=== PATIENT | female | born 1990 | race African-American/Black ===

== ENCOUNTER 2017-03-12 17:11 | Emergency (ER) | payer OTHER ==
[2017-03-12 17:16] VITALS: BP 139/80; PULSE 85; TEMP 98.7; BMI 24.0
[2017-03-12 17:24] LABS: URINE APPEARANCE Clear; URINE BILIRUBIN Negative (NEGATIVE); URINE GLUCOSE (UA) Negative (NEGATIVE); URINE KETONE Negative (NEGATIVE); URINE LEUK ESTERASE Negative (NEGATIVE); URINE NITRITE Negative (NEGATIVE); URINE PROTEIN Negative (NEGATIVE); URINE UROBILINOGEN 0.2 E.U/dl (0.2-1.0)
[2017-03-12] MEDS ORDERED: ONDANSETRON 4 MG/2 ML VIAL IVPB ONE (17:34)
[2017-03-12 17:39] LABS: URINE BLOOD 2+ (NEGATIVE); URINE COLOR YELLOW
[2017-03-12] MEDS ORDERED: SODIUM CHLORIDE 1,000 ML IV ONE (17:42)
[2017-03-12] MEDS ORDERED: ONDANSETRON 4 MG/2 ML VIAL ONE (17:42)
--- NOTE | 2017-03-12 17:47 | PDOC ---
History of Present Illness <Edmond Kaufman - Last Filed: 03/12/17 19:10> - History of Present Illness Initial Comments: 03/12/17 18:11 The patient is a 26 year old female, , with no significant past medical history of kidney stones and anxiety (20mg Celexa), who presents to the emergency department with intermittent left-sided pelvic pain, nausea and vomiting for 2 days, and possible borderline positive at-home test just prior to her ED arrival today. She reports her pain is focal to the anterior left pelvic region, intermittent, and sharp. The patient reports a couple of episodes of vomiting yesterday and one episode this morning, nonbilious nonbloody. She states she feels nauseous at this time. The patient states she has an IUD in place and reports her menstrual cycle was irregular prior to IUD placement. She reports minimal, intermittent vaginal bleeding, which the patient describes as spotting. She reports her last intercourse was 2 weeks ago.The patient states she is in a monogomous relationship. She denies taking pain medication today. She states her pain experiences with kidney stones was more severe than her pain today and reports needing a procedure at the time. She denies chest pain, shortness of breath, headache and dizziness. She denies fever, chills, diarrhea and constipation. She denies dysuria, frequency, vaginal discharge, urgency and hematuria. Allergies: NKDA Surgical; Hx: D&C Social history: Occasional alcohol consumption. Denies use of tobacco or illicit drugs. PCP - Dr. Braga ([facility]) <Magui Singh - Last Filed: 03/12/17 21:48> <Ivan Dougherty - Last Filed: 03/13/17 04:24> - General Chief Complaint: Pain, Acute Stated Complaint: left pelvic pain Time Seen by Provider: 03/12/17 17:12 Past History - Past Medical History Hypercholesterolemia: Yes Kidney Stones: Yes - Reproductive History Is Patient Now?: (possible) Therapeutic (s) & number: Yes (1) - Immunization History Immunization Up to Date: Yes - Psycho/Social/Smoking Cessation Hx Anxiety: No Suicidal Ideation: No Smoking History: Never smoked Have you smoked in the past 12 months: No Hx Alcohol Use: Yes Drug/Substance Use Hx: No Substance Use Type: Alcohol <Edmond Kaufman - Last Filed: 03/12/17 19:10> <Magui Singh - Last Filed: 03/12/17 21:48> <vIan Dougherty - Last Filed: 03/13/17 04:24> - Past Medical History Allergies/Adverse Reactions: Allergies Allergy/AdvReac Type Severity Reaction Status Date / Time No Known Allergies Allergy Verified 03/12/17 17:12 Home Medications: Ambulatory Orders Citalopram Hydrobromide [Celexa -] 20 mg PO DAILY 03/12/17 Review of Systems - Review of Systems Able to Perform ROS?: Yes Comments:: 03/12/17 18:11 CONSTITUTIONAL: No reported: Fever, Chills, Diaphoresis, Generalized Weakness, Malaise, Loss of Appetite HEENT: No reported: Rhinorrhea, Nasal Congestion, Throat Pain, Throat Swelling, Difficulty Swallowing, Mouth Swelling, Ear Pain, Eye Pain, Visual Changes CARDIOVASCULAR: No reported: Chest Pain, Syncope, Palpitations, Irregular Heart Rate, Lightheadedness, Peripheral Edema RESPIRATORY: No reported: Cough, Shortness of Breath, SOB with Exertion, Orthopnea, Wheezing , Stridor, Hemoptysis GASTROINTESTINAL: (+) Nausea, Vomiting, No reported: Abdominal pain, Abdominal Distension, Diarrhea, Constipation, Melena, Hematochezia GENITOURINARY: (+) Left pelvic pain. No reported: Dysuria, Frequency, Urgency, Hesitancy, Flank Pain, Genital Pain MUSCULOSKELETAL: No reported: Myalgia, Arthralgia, Joint Swelling, Back pain, Neck Pain SKIN: No reported: Rash, Itching, Pallor HEMEATOLOGIC/IMMUNOLOGIC: No reported: Easy Bleeding, Easy Bruising, Lymphadenopathy, Frequent infections ENDOCRINE: No reported: Unexplained Weight Gain, Unexplained Weight Loss, Heat Intolerance , Cold Intolerance NEUROLOGIC: No reported: Headache, Focal Weakness, Paresthesias, Vertigo, Lightheadedness, Unsteady Gait, Seizure, Mental Status Changes, Incontinence PSYCHIATRIC: No reported: Anxiety, Depression <Magui Singh - Last Filed: 03/12/17 21:48> *Physical Exam - Vital Signs Last Vital Signs Temp Pulse Resp BP Pulse Ox 98.7 F 85 16 139/80 100 03/12/17 17:12 03/12/17 17:12 03/12/17 17:12 03/12/17 17:12 03/12/17 17:12 <Edmond Kaufman - Last Filed: 03/12/17 19:10> - Vital Signs Last Vital Signs Temp Pulse Resp BP Pulse Ox 98.7 F 85 16 139/80 100 03/12/17 17:12 03/12/17 17:12 03/12/17 17:12 03/12/17 17:50 03/12/17 17:12 - Physical Exam Comments: 03/12/17 18:12 GENERAL: The patient is awake, alert, and fully oriented, Nontoxic - in no acute distress. HEAD: Normocephalic, atraumatic. EYES: extraocular movements intact, sclera anicteric, conjunctiva clear. ENT: Normal voice, Moist mucous membranes. NECK: Normal range of motion, supple LUNGS: Breath sounds equal, clear to auscultation bilaterally. No wheezes, no rhonchi, no rales. HEART: Regular rate and rhythm, without murmur, rub or gallop. ABDOMEN: Soft, mild suprapubic and l adnexal tenderness, normoactive bowel sounds. No guarding, no rebound. No CVA tenderness EXTREMITIES: Normal range of motion, no edema. No clubbing or cyanosis. No cords, erythema, or tenderness. NEUROLOGICAL: No facial assymetry, Normal speech, PSYCH: Normal mood, normal affect. SKIN: Warm, Dry, normal turgor Pelvic Exam was performed in the presence of a female M.A. There is +mild left adnexal tenderness.The IUD string is present. No rashes. No CMT. no active bleeding <Magui Singh - Last Filed: 03/12/17 21:48> - Vital Signs Last Vital Signs Temp Pulse Resp BP Pulse Ox 98.7 F 85 16 139/80 100 03/12/17 17:12 03/12/17 17:12 03/12/17 17:12 03/12/17 17:50 03/12/17 17:12 <Ivan Dougherty - Last Filed: 03/13/17 04:24> ED Treatment Course - LABORATORY CBC & Chemistry Diagram: 03/12/17 17:50 03/12/17 17:50 - ADDITIONAL ORDERS Additional order review: Laboratory Results 03/12/17 17:18 Urine Color Yellow Urine Appearance Clear Urine pH 6.0 Ur Specific [place] 1.025 Urine Protein Negative Urine Glucose (UA) Negative Urine Ketones Negative Urine Blood 2+ H Urine Nitrite Negative Urine Bilirubin Negative Urine Urobilinogen 0.2 e.u/dl Ur Leukocyte Esterase Negative Urine HCG, Qual Negative <Shae,Edmond - Last Filed: 03/12/17 19:10> - LABORATORY CBC & Chemistry Diagram: 03/12/17 17:50 03/12/17 17:50 - ADDITIONAL ORDERS Additional order review: Laboratory Results 03/12/17 17:18 Urine Color Yellow Urine Appearance Clear Urine pH 6.0 Ur Specific [place] 1.025 Urine Protein Negative Urine Glucose (UA) Negative Urine Ketones Negative Urine Blood 2+ H Urine Nitrite Negative Urine Bilirubin Negative Urine Urobilinogen 0.2 e.u/dl Ur Leukocyte Esterase Negative Urine RBC 5-10 Urine WBC 3-5 Ur Epithelial Cells 1+ Urine Bacteria 1+ Urine HCG, Qual Negative - RADIOLOGY Radiograph Interpretation: 03/12/17 21:02 EXAM: Renal ultrasound was read by Obed Nieto MD at 20:59 EST REASON FOR EXAM: Left-sided pain FINDINGS: Renal dimensions are 9.9 x 3.8 x 4.6 cm for the right kidney and 10.7 x 5.0 x 4.0 cm for the left kidney. There is no hydronephrosis. There are no sonographically apparent renal masses or calculi. 03/12/17 21:48 EXAM: Transvaginal pelvic ultrasound and ovarian duplex was read by Obed Nieto MD at 21:43 EST REASON FOR EXAM: Left side pain, status post IUD insertion FINDINGS: Uterine dimensions are 7.5 x 4.0 x 4.2 cm. Endometrial stripe normal in thickness measuring 0.5cm. There is an IUD in place. There are subcentimeter ovarian follicles. Ovarian dimensions are 3.4 x 1.5 x 2.2 cm for the right ovary and 3.9 x 1.9 x 3.7 cm for the left ovary. There is intact blood flow demonstrated to the ovaries. Arterial and venous spectral waveforms demonstrated. There is no evidence of torsion. There is a 2.3 cm septated left ovarian cyst. There is mild free fluid. - Medications Given in the ED: ED Medications Discontinued Medications Generic Name Dose Route Start Last Admin Trade Name Freq PRN Reason Stop Dose Admin Ondansetron HCl 4 mg 03/12/17 17:34 03/12/17 17:50 Zofran Injection IVPB 03/12/17 17:35 4 mg ONCE ONE Administration <Magui Singh - Last Filed: 03/12/17 21:48> - LABORATORY CBC & Chemistry Diagram: 03/12/17 17:50 03/12/17 17:50 - ADDITIONAL ORDERS Additional order review: Laboratory Results 03/12/17 03/12/17 17:50 17:18 Sodium 136 Potassium 4.0 Chloride 104 Carbon Dioxide 24 Anion Gap 8 BUN 13 Creatinine 0.9 Creat Clearance w eGFR > 60 Random Glucose 93 Calcium 9.6 Total Bilirubin 0.5 AST 18 D ALT 14 Alkaline Phosphatase 66 Total Protein 7.6 Albumin 4.4 Beta HCG, Quant < 1.0 Urine Color Yellow Urine Appearance Clear Urine pH 6.0 Ur Specific [place] 1.025 Urine Protein Negative Urine Glucose (UA) Negative Urine Ketones Negative Urine Blood 2+ H Urine Nitrite Negative Urine Bilirubin Negative Urine Urobilinogen 0.2 e.u/dl Ur Leukocyte Esterase Negative Urine RBC 5-10 Urine WBC 3-5 Ur Epithelial Cells 1+ Urine Bacteria 1+ Urine HCG, Qual Negative 03/12/17 17:50 RBC 4.50 MCV 86.4 MCHC 34.1 RDW 13.5 MPV 9.8 Neutrophils % 47.4 Lymphocytes % 40.0 Monocytes % 8.4 Eosinophils % 1.3 Basophils % 2.9 H - Medications Given in the ED: ED Medications Discontinued Medications Generic Name Dose Route Start Last Admin Trade Name Freq PRN Reason Stop Dose Admin Sodium Chloride 1,000 mls @ 1,000 mls/hr 03/12/17 17:42 03/12/17 17:50 Normal Saline - IV 03/12/17 18:41 1,000 mls/hr .Q1H ONE Administration Ondansetron HCl 4 mg 03/12/17 17:34 03/12/17 17:50 Zofran Injection IVPB 03/12/17 17:35 4 mg ONCE ONE Administration <Ivan Dougherty - Last Filed: 03/13/17 04:24> Medical Decision Making - Medical Decision Making 03/12/17 17:44 26y F hx of kidney stones presenting with intermittent LLQ pain associated witn nausea. Pt about 2 months s/p IUD placement, and has been having sexual intercourse. Pt endorses having some vaginal spotting for the past few days, als notes she has irregular periods even prior to IUD. No fever/chills, diarrhea , dysuria, vag discharge. on exam pt has mild llq and suprapubic tenderness differential includes , ectopic , kidney stones, ovarian cysts , uti UA is neg for hcg will ck labs, beta hcg will give zofran and fluids pt declined pain medication possible US vs CT A portion of this note was documented by scribe services under my direction. I have reviewed the details of the note, within reason, and agree with the documentation with the following case summary and management plan written by me 03/12/17 18:09 pts UA reiewed pelvic exam unreamrakble beside L adnexal tenderness will obtain pelivc US to r/o cysts/torsion 03/12/17 19:10 will sign the pt out to dr. 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
[2017-03-12 18:02] LABS: URINE BACTERIA 1+ /hpf (NEGATIVE)
[2017-03-12 18:14] LABS: BASOPHIL 2.9 % (0-2.0); EOSINOPHIL 1.3 % (0-4.5); MCH 29.4 pg (25.7-33.7); MCHC 34.1 g/dl (32.0-36.0); MEAN CELL VOLUME 86.4 fl (80-96); MEAN PLT VOLUME 9.8 fl (7.5-11.1); NEUTROPHILS 47.4 % (42.8-82.8); PLATELET COUNT 203 K/MM3 (134-434); RDW 13.5 % (11.6-15.6); WHITE BLOOD COUNT 6.9 K/mm3 (4.0-10.8)
[2017-03-12 18:22] LABS: ALBUMIN 4.4 g/dl (3.5-5.0); ALK PHOS 66 U/L (32-92); ANION GAP 8 (8-16); BILIRUBIN,TOTAL 0.5 mg/dl (0.2-1.0); CALCIUM 9.6 mg/dl (8.4-10.2); CO2 24 mmol/L (22-28); CREATININE 0.9 mg/dl (0.6-1.3); GLUCOSE,RANDOM 93 mg/dl (74-106); SGOT/AST 18 U/L (10-42); SGPT/ALT 14 U/L (10-40); TOT PROT 7.6 g/dl (6.4-8.3)
[2017-03-12 18:34] LABS: COCKROFT - GAULT NT
[2017-03-15 08:06] LABS: CHLA.TRACHOMATI Negative (Negative)
== END 2017-03-12 22:07 | disposition home or self-care (01) ==
LOC: FER 17:11
PROC: 3E033GC Introduction of Other Therapeutic Substance into Peripheral Vein, Percutaneous Approach (ICD-10-PCS; principal; 2017-03-12)
PROC: 3E0337Z Introduction of Electrolytic and Water Balance Substance into Peripheral Vein, Percutaneous Approach (ICD-10-PCS; 2017-03-12)
DX: N83.202 Unspecified ovarian cyst, left side (principal); N83.292 Other ovarian cyst, left side
CPT/HCPCS: 36415; 76775-TC; 76830-TC; 80053; 81003; 81015; 84702; 84703; 85025; 87081; 87491; 87591; 99282-25

== ENCOUNTER 2017-05-06 14:06 | Emergency (ER) | payer OTHER ==
[2017-05-06 14:31] VITALS: BP 127/77; PULSE 83; TEMP 98; BMI 23.9
--- NOTE | 2017-05-06 14:47 | PDOC ---
History of Present Illness - General History Source: Patient Exam Limitations: No Limitations - History of Present Illness Initial Comments: 05/06/17 14:48 The patient is a 26 year old female [id number], with significant past medical history of ovarian cysts, kidney stones, asthma, depression, who presents today complaining of left lower pelvic pain x2 days. She describes the pain as severe , sudden, and sharp left lower pelvic pain that began last night and progressively worsened into this morning. The pain woke her up from a sound sleep at 3am this morning. She took motrin with mild relief. She followed up with her supervisor customer services in the office this morning, who advised her to visit the emergency room to rule out ovarian torsion. The patient explains that she was seen in the ED in January, 3 months ago, and found out she had an ovarian cyst. Since then, she has been following up with her supervisor customer services, Dr. Vasyl Braga, because she has been experiencing the same left lower pelvic pain at least once a week for 3 months. The patient is sexually active with 1 partner, whom she has been monogamous with for 3 years. She notes that she had an IUD placed and has had chronic vaginal spotting over the past month. Denies fever, chills, nausea, vomiting. Denies dysuria, hematuria, urinary frequency. Allergies:none reported Medications: No current medications. Surgical Hx: cystoscopy, IUD Social Hx: Social tobacco use. Social alcohol use. [facility]: Dr. Vasyl Braga <Anni Jerome - Last Filed: 05/06/17 17:01> <Romeo Weaver - Last Filed: 05/06/17 17:07> - General Chief Complaint: Pain Stated Complaint: PELVIC PAIN Time Seen by Provider: 05/06/17 14:12 Past History <Anni Jerome - Last Filed: 05/06/17 17:01> - Past Medical History Hypercholesterolemia: Yes Kidney Stones: Yes Other medical history: OVARIAN CYSTS - Reproductive History Therapeutic (s) & number: Yes (1) - Immunization History Immunization Up to Date: Yes - Psycho/Social/Smoking Cessation Hx Anxiety: No Suicidal Ideation: No Smoking History: Never smoked Have you smoked in the past 12 months: No Information on smoking cessation initiated: No Hx Alcohol Use: No Drug/Substance Use Hx: No Substance Use Type: Alcohol <Romeo Wevaer - Last Filed: 05/06/17 17:07> - Past Medical History Allergies/Adverse Reactions: Allergies Allergy/AdvReac Type Severity Reaction Status Date / Time No Known Allergies Allergy Verified 05/06/17 14:07 Home Medications: Ambulatory Orders NK [No Known Home Medication] 05/06/17 Review of Systems - Review of Systems Able to Perform ROS?: Yes Comments:: 05/06/17 14:48 CONSTITUTIONAL: Absent: Fever, Chills, Diaphoresis, Generalized Weakness, Malaise, Loss of Appetite HEENT: Absent: Rhinorrhea, Nasal Congestion, Throat Pain, Throat Swelling, Difficulty Swallowing, Mouth Swelling, Ear Pain, Eye Pain, Visual Changes CARDIOVASCULAR: Absent: Chest Pain, Syncope, Palpitations, Irregular Heart Rate, Lightheadedness , Peripheral Edema RESPIRATORY: Absent: Cough, Shortness of Breath, SOB with Exertion, Orthopnea, Wheezing, Stridor, Hemoptysis GASTROINTESTINAL: Absent: Abdominal pain, Abdominal Distension, Nausea, Vomiting, Diarrhea, Constipation, Melena, Hematochezia GENITOURINARY: Present: left lower pelvic pain. Absent: Dysuria, Frequency, Urgency, Hesitancy, Flank Pain MUSCULOSKELETAL: Absent: Myalgia, Arthralgia, Joint Swelling, Back pain, Neck Pain SKIN: Absent: Rash, Itching, PalloR HEMEATOLOGIC/IMMUNOLOGIC: Absent: Easy Bleeding, Easy Bruising, Lymphadenopathy, Frequent infections ENDOCRINE: Absent: Unexplained Weight Gain, Unexplained Weight Loss, Heat Intolerance, Cold Intolerance NEUROLOGIC: Absent: Headache, Focal Weakness, Paresthesias, Vertigo, Lightheadedness, Unsteady Gait, Seizure, Mental Status Changes, Incontinence PSYCHIATRIC: Absent: Anxiety <Anni Jerome - Last Filed: 05/06/17 17:01> *Physical Exam - Vital Signs Last Vital Signs Temp Pulse Resp BP Pulse Ox 98 F 83 20 127/77 99 05/06/17 14:06 05/06/17 14:06 05/06/17 14:06 05/06/17 14:06 05/06/17 14:06 - Physical Exam Comments: 05/06/17 15:48 GENERAL: The patient is awake, alert, and fully oriented, in no acute distress. HEAD: Normal with no signs of trauma. EYES: Pupils equal, round and reactive to light, extraocular movements intact, sclera anicteric, conjunctiva clear. ENT: Ears normal, nares patent, oropharynx clear without exudates. Moist mucous membranes. NECK: Normal range of motion, supple without lymphadenopathy, JVD, or masses. LUNGS: Breath sounds equal, clear to auscultation bilaterally. No wheezes, and no crackles. HEART: Regular rate and rhythm, normal S1 and S2 without murmur, rub or gallop. ABDOMEN: +mild tenderness on deep palpation across the entire lower abdomen. No guarding, no rebound, no masses. Soft, normoactive bowel sounds. PELVIC EXAMINATION: External genitalia: Normal without lesions. Vagina: +mild off-white discharge. Vault is without blood. Cervix: Long and closed with no cervical motion tenderness. String of IUD is in good position. Uterus: Nontender, normal in size. Adnexa: Nontender, without masses. EXTREMITIES: Normal range of motion, no edema. No clubbing or cyanosis. No cords , erythema, or tenderness. NEUROLOGICAL: Cranial nerves II through XII grossly intact. Normal speech, normal gait. PSYCH: Normal mood, normal affect. SKIN: Warm, Dry, normal turgor, no rashes or lesions noted. <Anni Jerome - Last Filed: 05/06/17 17:01> - Vital Signs Last Vital Signs Temp Pulse Resp BP Pulse Ox 98 F 83 20 127/77 99 05/06/17 14:06 05/06/17 14:06 05/06/17 14:06 05/06/17 14:06 05/06/17 14:06 <Romeo Weaver - Last Filed: 05/06/17 17:07> ED Treatment Course - LABORATORY CBC & Chemistry Diagram: 05/06/17 15:16 05/06/17 15:16 - RADIOLOGY Radiograph Interpretation: 05/06/17 16:34 EXAM#: TYPE/EXAM: RESULT: [id number] US/TRANSVAGINAL ULTRASOUND US Left pelvic pain. Rule out torsion Pelvis ultrasound, transvesical and transvaginal LMP 03/25/2017 Compared to prior pelvis ultrasound dated 03/12/2027 The uterus measures 8.2 x 4 cm with homogeneous echotexture. An intra-HI device is present in satisfactory position without thickening of the endometrial stripe. The right ovary measures 6.2 x 3.9 cm and contains a large simple cyst measuring 4.6 x 3.5 cm. Normal peripheral parenchymal vascular flow is present. Left ovary measures 3 x 1.4 cm with a few tiny cysts/follicles and normal vascular flow. There is a trace of free fluid in the cul-de-sac IMPRESSION: Intrauterine device in satisfactory position. Large right ovarian simple cyst measuring 4.6 x 3.5 cm for which a follow-up ultrasound in first week of the next menstrual cycle is recommended. Left ovarian cyst has resolved Normal vascular flow in both ovaries without evidence of torsion. Reported By: Meaghan Olson MD 05/06/17 1630 <Anni Jerome - Last Filed: 05/06/17 17:01> - LABORATORY CBC & Chemistry Diagram: 05/06/17 15:16 05/06/17 15:16 - RADIOLOGY Radiology Studies Ordered: Category Date Time Status PELVIS(OTHER) US [US] Stat Ultrasound 05/06/17 14:31 Ordered <Romeo Weaver - Last Filed: 05/06/17 17:07> Medical Decision Making - Medical Decision Making 05/06/17 16:59 Patient with history of ovarian cyst has been having pelvic pain approximately once a week over the last several months. She comes in now with increased pain since yesterday. The pain is in the left lower quadrant radiating to the midline. She saw her [employer] doctor today and was sent to the ED for rule out ovarian torsion. On examination there is mild diffuse lower abdominal tenderness. The pelvic examination shows no cervical motion tenderness and no palpable adnexal masses. Laboratory workup was done. White blood cell count is normal. Hemoglobin is normal. Chemistry panel is unremarkable. Urinalysis shows negative test. There is 2+ blood in the urine, however, the patient has an IUD with chronic vaginal spotting. Pelvic ultrasound was performed. Her prior ultrasound performed here showed an ovarian cyst on the left. The left ovarian cyst has resolved. There is a new simple cyst on the right. There is trace pelvic fluid. The ovarian blood flow is normal. Laboratory Results - last 24 hr 05/06/17 05/06/17 05/06/17 15:16 15:16 15:16 WBC 8.6 RBC 4.25 Hgb 12.8 Hct 37.0 MCV 87.0 MCH 30.1 MCHC 34.6 RDW 13.9 Plt Count 167 MPV 9.1 Neutrophils % 66.6 D Lymphocytes % 23.8 D Monocytes % 6.9 Eosinophils % 0.7 Basophils % 2.0 Sodium 135 L Potassium 3.5 Chloride 104 Carbon Dioxide 26 Anion Gap 5 L BUN 14 Creatinine 0.8 Creat Clearance w eGFR > 60 Random Glucose 91 Calcium 9.0 Total Bilirubin 0.7 D AST 18 ALT 11 D Alkaline Phosphatase 59 Total Protein 6.6 Albumin 4.1 Urine Color [place] Urine Appearance Clear Urine pH 5.5 Ur Specific [place] 1.025 Urine Protein Negative Urine Glucose (UA) Negative Urine Ketones Negative Urine Blood 2+ Urine Nitrite Negative Urine Bilirubin Negative Urine Urobilinogen 0.2 Ur Leukocyte Esterase Negative Urine HCG, Qual Negative 05/06/17 17:03 Right ovarian cyst, no other acute pelvic pathology. No evidence of torsion. No evidence of urinary tract infection. Normal white blood cell count without other evidence of infection. Patient is stable for discharge home. <Romeo Weaver - Last Filed: 05/06/17 17:07> *DC/Admit/Observation/Transfer - Attestations Scribe Attestion: 05/06/17 14:49 Documentation prepared by FARHEEN Molina, acting as medical coding auditor for Romeo Weaevr MD. <Anni Jerome - Last Filed: 05/06/17 17:01> - Discharge Dispostion Admit: No <Romeo Weaver - Last Filed: 05/06/17 17:07> Diagnosis at time of Disposition: Pain in pelvis - Discharge Dispostion Disposition: HOME Condition at time of disposition: Stable - Patient Instructions Printed Discharge Instructions: DI for Pelvic Pain Additional Instructions: You were evaluated today for pelvic pain. The blood work showed no abnormalities. The urine showed no and no sign of infection. The pelvic ultrasound showed no ovarian torsion. You do have a new cyst on the right side. The old cyst on the left side has fully resolved. It is recommended that you go to your primary [facility] [facility] doctor for follow-up. Bring your copy of your lab results and ultrasound report to your [facility] [facility] doctor at your next visit. Return to the emergency department for any severe or progressive symptoms.
[2017-05-06 15:24] LABS: PH,URINE 5.5 (4.5-8); URINE APPEARANCE Clear; URINE BILIRUBIN Negative (NEGATIVE); URINE BLOOD 2+ (NEGATIVE); URINE GLUCOSE (UA) Negative (NEGATIVE); URINE KETONE Negative (NEGATIVE); URINE LEUK ESTERASE Negative (NEGATIVE); URINE NITRITE Negative (NEGATIVE); URINE PROTEIN Negative (NEGATIVE); URINE UROBILINOGEN 0.2 (0.2-1.0)
[2017-05-06 15:25] LABS: URINE COLOR AMBER
[2017-05-06 15:26] LABS: EOSINOPHIL 0.7 % (0-4.5)
[2017-05-06 15:30] LABS: MCH 30.1 pg (25.7-33.7); MCHC 34.6 g/dl (32.0-36.0); MEAN PLT VOLUME 9.1 fl (7.5-11.1); NEUTROPHILS 66.6 % (42.8-82.8); PLATELET COUNT 167 K/MM3 (134-434); RDW 13.9 % (11.6-15.6); WHITE BLOOD COUNT 8.6 K/mm3 (4.0-10.8)
[2017-05-06 15:38] LABS: ALBUMIN 4.1 g/dl (3.5-5.0); ALK PHOS 59 U/L (32-92); ANION GAP 5 (8-16); BILIRUBIN,TOTAL 0.7 mg/dl (0.2-1.0); CO2 26 mmol/L (22-28); CREATININE 0.8 mg/dl (0.6-1.3); GLUCOSE,RANDOM 91 mg/dl (74-106); SGOT/AST 18 U/L (10-42); SGPT/ALT 11 U/L (10-40); TOT PROT 6.6 g/dl (6.4-8.3)
== END 2017-05-06 17:21 | disposition home or self-care (01) ==
LOC: FER 14:06
DX: R10.2 Pelvic and perineal pain (principal); Z87.442 Personal history of urinary calculi; J45.909 Unspecified asthma, uncomplicated; F32.9 Major depressive disorder, single episode, unspecified
CPT/HCPCS: 36415; 76830-TC; 80053; 81003; 84703; 85025; 87491; 87591; 99282-25

== ENCOUNTER 2018-07-24 20:40 | Emergency (ER) | payer OTHER ==
[2018-07-24 20:53] VITALS: BP 139/80; PULSE 76; TEMP 98.7; BMI 25.7
--- NOTE | 2018-07-24 21:06 | PDOC ---
History of Present Illness - General History Source: Patient Exam Limitations: No Limitations - History of Present Illness Initial Comments: 07/24/18 23:09 The patient is a 28 year old female, with a significant past medical history of Kidney stones (s/p bilateral lithotripsy 2015) and UTI (last in 2016), who presents to the emergency department with 2 weeks of right flank pain and pain to her urethra with urination, as well as fever on Monday and Monday (Tmax 101.8F). She states her pain is constant to the right flank with radiation to her right back. She states she also has pain to her urethra during urination. She reportedly had fevers over the weekend for which she treated with Tylenol and denies fevers since. She states she was seen at urgent care yesterday where she tested positive for hematuria and was advised to follow with her urologist for an outpatient CT scan. The patient states she attempted to make an appointment with her urologist, however, her urologist is on maternity leave and the covering urologist does not have availability until October of 2018. The patient states she came to the ED to have a CT scan. She states she last saw her urologist in March and had ultrasounds which reveals multiple small stones in her kidneys bilaterally without any obstruction. She reports associated nausea, but denies vomiting. She also reports a slight decrease in appetite because eating small amounts has been making me feel extra full. She states she has never been told she had kidney infections in the past, "just bladder infections." She states she has taken ciprofloxacin in the past. The patient denies chest pain, shortness of breath, headache and dizziness. The patient denies fever, chills,vomit, diarrhea and constipation. The patient denies frequency, urgency. Allergies: NKDA Social history: denies toxic habits <Magui Singh - Last Filed: 07/24/18 23:09> <Amina Vicente - Last Filed: 07/27/18 01:22> - General Chief Complaint: Urinary Problem Stated Complaint: BURNING AND URGENCY ON URINATION H/O KIDNEY STONES Time Seen by Provider: 07/24/18 20:46 Past History <Magui Singh - Last Filed: 07/24/18 23:09> - Past Medical History COPD: No Hypercholesterolemia: Yes Kidney Stones: Yes - Reproductive History Therapeutic (s) & number: Yes (1) - Immunization History Immunization Up to Date: Yes - Suicide/Smoking/Psychosocial Hx Smoking History: Never smoked Have you smoked in the past 12 months: No Information on smoking cessation initiated: No Hx Alcohol Use: Yes (SOCIAL) Drug/Substance Use Hx: No Substance Use Type: Alcohol <Amina Vicente - Last Filed: 07/27/18 01:22> - Past Medical History Allergies/Adverse Reactions: Allergies Allergy/AdvReac Type Severity Reaction Status Date / Time No Known Allergies Allergy Verified 07/24/18 20:43 Home Medications: Ambulatory Orders Ciprofloxacin [Cipro -] 500 mg PO Q12H #14 tablet 07/24/18 Review of Systems - Review of Systems Able to Perform ROS?: Yes Comments:: 07/24/18 23:10 CONSTITUTIONAL: Absent: fever, chills, diaphoresis, generalized weakness, malaise, loss of appetite HEENT: Absent: rhinorrhea, nasal congestion, throat pain, throat swelling, difficulty swallowing,mouth swelling, ear pain, eye pain, visual Changes CARDIOVASCULAR: Absent: chest pain, syncope, palpitations, irregular heart rate, lightheadedness , peripheral edema RESPIRATORY: Absent: cough, shortness of breath, dyspnea with exertion, orthopnea, wheezing, stridor, hemoptysis GASTROINTESTINAL: Absent: abdominal pain, abdominal distension, nausea, vomiting, diarrhea, constipation,melena, hematochezia GENITOURINARY: (+) dysuria, hematuria, R flank pain, genital pain. Absent:frequency, urgency, hesitancy, MUSCULOSKELETAL: Absent: myalgia, arthralgia, joint swelling SKIN: Absent: rash, itching, pallor HEMATOLOGIC/IMMUNOLOGIC: Absent: easy bleeding, easy bruising, lymphadenopathy, frequent infections ENDOCRINE: Absent: unexplained weight gain, unexplained weight loss, heat intolerance, cold intolerance NEUROLOGIC: Absent: headache, focal weakness or paresthesias, dizziness, unsteady gait, seizure, mental status changes, bladder or bowel incontinence PSYCHIATRIC: Absent: anxiety, depression, suicidal or homicidal ideation, hallucinations. <Magui Singh - Last Filed: 07/24/18 23:09> *Physical Exam - Vital Signs Last Vital Signs Temp Pulse Resp BP Pulse Ox 98.7 F 76 16 139/80 100 07/24/18 20:41 07/24/18 20:41 07/24/18 20:41 07/24/18 20:41 07/24/18 20:41 - Physical Exam Comments: 07/24/18 23:11 GENERAL: The patient is awake, alert, and fully oriented, in no acute distress. HEAD: Normal with no signs of trauma. EYES: Pupils equal, round and reactive to light, extraocular movements intact, sclera anicteric, conjunctiva clear with no pallor. ENT: Ears normal, nares patent, oropharynx clear without exudates. Moist mucous membranes. NECK: Normal range of motion, supple without lymphadenopathy, JVD, or masses. LUNGS: Breath sounds equal, clear to auscultation bilaterally. No wheeze/ crackles. HEART: Regular rate and rhythm, normal S1 and S2 without murmur or rub. ABDOMEN: Soft/nontender/nondistended. BS wnl. No guarding or rebound. No palpable masses. No hepatosplenomegaly. MUSCULOSKELETAL: (+) Right CVA tenderness. EXTREMITIES: Normal range of motion, no edema. No clubbing or cyanosis. No cords , erythema, or tenderness. NEUROLOGICAL: Cranial nerves II through XII grossly intact. Normal speech, normal gait. PSYCH: Normal mood, normal affect. SKIN: Warm, Dry, normal turgor, no rashes or lesions noted. <Magui Singh - Last Filed: 07/24/18 23:09> - Vital Signs Last Vital Signs Temp Pulse Resp BP Pulse Ox 98.7 F 76 16 139/80 100 07/24/18 20:41 07/24/18 20:41 07/24/18 20:41 07/24/18 20:41 07/24/18 20:41 <Amina Vicente - Last Filed: 07/27/18 01:22> ED Treatment Course - ADDITIONAL ORDERS Additional order review: Laboratory Results 07/24/18 21:12 Urine Color Yellow Urine Appearance Slightly Urine pH 7.0 Ur Specific [place] 1.020 Urine Protein Negative Urine Glucose (UA) Negative Urine Ketones Negative Urine Blood 2+ H Urine Nitrite Negative Urine Bilirubin Negative Urine Urobilinogen 0.2 Ur Leukocyte Esterase 2+ H Urine RBC 10-20 Urine WBC >100 Ur Epithelial Cells Few Urine Bacteria 3+ - Medications Given in the ED: ED Medications Discontinued Medications Generic Name Dose Route Start Last Admin Trade Name Freq PRN Reason Stop Dose Admin Ketorolac Tromethamine 30 mg 07/24/18 22:25 07/24/18 22:41 Toradol Injection - IVPUSH 07/24/18 22:26 Not Given ONCE ONE Ketorolac Tromethamine 60 mg 07/24/18 22:35 07/24/18 22:39 Toradol Injection - IM 07/24/18 22:36 60 mg ONCE ONE Administration <Magui Singh - Last Filed: 07/24/18 23:09> Progress Note - Progress Note Progress Note: Documentation has been prepared under my direction and personally reviewed by me in its entirety. I attest that this documented accurately reflects all work, treatment, procedures and medical decision making performed by me. <Amina Vicente - Last Filed: 07/27/18 01:22> Medical Decision Making - Medical Decision Making As noted above, this 28-year-old woman with a history of kidney stones in the past presents with right flank pain/pressure as well as dysuria. Exam as noted. Abdomen/pelvis CT performed: Nonobstructing, tiny (1 mm) stone is suggested in the distal right ureter without significant hydroureter/hydronephrosis. Urinalysis consistent with UTI with greater than 100 WBC; 3+ bacteria and few epi. Because of the lack of obstructing stones, perinephric abscess extremely unlikely. However, because patient has right flank pain and evidence of UTI, upper tract infection is a possibility. Therefore, patient will be started on Cipro 500 mg twice a day with the first dose being given here in the emergency room. Patient should return to the emergency room immediately if she has severe , persistent pain/high fever/vomiting. She has been given referral information for urology () with whom she should follow up within the next few days. <Amina Vicente - Last Filed: 07/27/18 01:22> *DC/Admit/Observation/Transfer - Attestations Scribe Attestion: 07/24/18 23:11 Documentation prepared by Magui Singh, acting as medical assistant instructor for Amina Vicente MD <Magui Singh - Last Filed: 07/24/18 23:09> <Amina Vicente - Last Filed: 07/27/18 01:22> Diagnosis at time of Disposition: UTI (urinary tract infection) Qualifiers: Urinary tract infection type: site unspecified Hematuria presence: without hematuria Qualified Code(s): N39.0 - Urinary tract infection, site not specified - Discharge Dispostion Disposition: HOME Condition at time of disposition: Stable - Prescriptions Prescriptions: Ciprofloxacin [Cipro -] 500 mg PO Q12H #14 tablet - Referrals Referrals: Ramakrishna Hopkins MD [Staff Physician] - 3 days - Patient Instructions Printed Discharge Instructions: Urinary Tract Infection Additional Instructions: rest; drink plenty of fluids Cipro 500mg twice a day for 1 week followup with urologist(Dr Hopkins) within 3-4 days return to ER if you have severe pain, vomiting, high fever
[2018-07-24 21:20] LABS: URINE APPEARANCE Slightly; URINE BILIRUBIN Negative (NEGATIVE); URINE COLOR Yellow; URINE GLUCOSE (UA) Negative (NEGATIVE); URINE KETONE Negative (NEGATIVE); URINE LEUK ESTERASE 2+ (NEGATIVE); URINE NITRITE Negative (NEGATIVE); URINE PROTEIN Negative (NEGATIVE); URINE UROBILINOGEN 0.2 (0.2-1.0)
[2018-07-24 21:37] LABS: EPI CELLS FEW /HPF; URINE BACTERIA 3+ /hpf (NEGATIVE); URINE WBC >100 (0-5)
[2018-07-24] MEDS ORDERED: KETOROLAC TROMETHAMINE 30 MG/1 ML VIAL IVPUSH ONE (22:25)
[2018-07-24] MEDS ORDERED: KETOROLAC TROMETHAMINE 60 MG/2 ML VIAL ONE (22:35)
[2018-07-24] MEDS ORDERED: KETOROLAC TROMETHAMINE 60 MG/2 ML VIAL IM ONE (22:35)
[2018-07-24] MEDS ORDERED: CIPROFLOXACIN 500 MG TABLET (RESTRICTED TO ID) PO ONE (23:01)
[2018-07-24] MEDS ORDERED: CIPROFLOXACIN 250 MG TABLET (RESTRICTED TO ID) PO ONE (23:16)
== END 2018-07-24 23:23 | disposition home or self-care (01) ==
LOC: FER 20:40
PROC: 3E0233Z Introduction of Anti-inflammatory into Muscle, Percutaneous Approach (ICD-10-PCS; principal; 2018-07-24)
DX: N39.0 Urinary tract infection, site not specified (principal)
CPT/HCPCS: 74176; 81003; 81015; 87086; 87186; 99282-25

== ENCOUNTER 2021-05-25 02:40 | Inpatient (IN) | payer BC ==
[2021-05-25] MEDS ORDERED: DEXTROSE 5%-LACTATED RINGERS 1,000 ML IV SCH (04:00)
[2021-05-25] MEDS ORDERED: OXYTOCIN 30 UNITS in 0.9% NS 30 UNIT/500 ML INFUS.BAG IVPB SCH (05:00)
[2021-05-25 06:04] LABS: BASO % 0.4 % (0-2.0); EOS % 0.7 % (0-4.5); HEMATOCRIT 36.3 % (32.4-45.2); HEMOGLOBIN 12.3 GM/dL (10.7-15.3); LYMPH % 22.7 % (8-40); MCH 30.2 pg (25.7-33.7); MCHC 33.9 g/dl (32.0-36.0); MEAN PLT VOLUME 10.7 fl (7.5-11.1); MONO % 8.7 % (3.8-10.2); NEUT % 67.5 % (42.8-82.8); PLATELET COUNT 111 10^3/uL (134-434); RBC 4.08 M/mm3 (3.60-5.2); RDW 15.2 % (11.6-15.6); WHITE BLOOD COUNT 10.5 K/mm3 (4.0-10.0)
[2021-05-25 06:10] LABS: BLOOD UREA NITROGEN 13.2 mg/dL (7-18); CALCIUM 8.9 mg/dL (8.5-10.1)
[2021-05-25 06:14] LABS: CREATININE 0.7 mg/dL (0.55-1.3)
[2021-05-25 06:38] LABS: SYPHILIS W/ RPR CONF NON-REACTIVE (NONREACTIVE)
[2021-05-25 06:45] LABS: INR 0.99 (0.83-1.09); PROTHROMBIN TIME (PATIENT) 12.2 SEC (9.7-13.0)
[2021-05-25 06:48] LABS: ACTIVATED PTT 26.6 SECONDS (25.2-36.5)
[2021-05-25 07:07] LABS: HIV INTERPRETATION NEGATIVE (NEGATIVE)
[2021-05-25] MEDS ORDERED: PROMETHAZINE HCL 25 MG/1 ML VIAL ONE ×2 (08:33→12:50)
[2021-05-25] MEDS ORDERED: BUTORPHANOL TARTRATE 2 MG/ML VIAL ONE ×2 (08:33→12:50)
[2021-05-25] MEDS ORDERED: OXYTOCIN 30 UNITS in 0.9% NS 30 UNIT/500 ML INFUS.BAG IVPB ONE (08:38)
[2021-05-25] MEDS ORDERED: PROMETHAZINE HCL 25 MG/1 ML VIAL IVPB ONE ×2 (09:25→12:32)
[2021-05-25] MEDS ORDERED: BUTORPHANOL TARTRATE 1 MG/ML VIAL IVPB ONE ×2 (09:30→12:32)
[2021-05-25] MEDS ORDERED: FENTANYL/BUPIVACAINE/NS/PF - PCEA - 50 ML DISP.SYRIN EP ONE (16:02)
[2021-05-25] MEDS ORDERED: BUPIVACAINE HCL/PF 0.25% (2.5MG/ML) 10 ML VIAL ONE (16:05)
[2021-05-25] MEDS: FENTANYL/BUPIVACAINE/NS/PF - PCEA - 50 ML DISP.SYRIN EP SCH (16:30)
[2021-05-25] MEDS ORDERED: NALOXONE HCL 0.4 MG/ML VIAL IVPUSH PRN (16:32)
[2021-05-25] MEDS ORDERED: TERBUTALINE SULFATE 1 MG/1 ML VIAL SQ ONE ×2 (16:59→21:45)
[2021-05-25] MEDS ORDERED: SODIUM CHLORIDE 1,000 ML IV STA (18:09)
[2021-05-25] MEDS ORDERED: PCA PUMP NR ONE (19:27)
[2021-05-25] MEDS ORDERED: LIDOCAINE HCL/EPINEPHRINE/PF 10 ML VIAL ONE ×2 (22:14→22:38)
[2021-05-25] MEDS ORDERED: PHENYLEPHRINE HCL 10 MG/1 ML SINGLE DOSE VIAL ONE (22:35)
[2021-05-25] MEDS ORDERED: MIDAZOLAM HCL 2 MG/2 ML SINGLE DOSE VIAL ONE (23:15)
[2021-05-25] MEDS ORDERED: ONDANSETRON 4 MG/2 ML VIAL IVPUSH PRN (23:55)
[2021-05-25 23:56] LABS: CORD BASE EXCESS -4.5 mmol/L (0-2); CORD HCO3 21.9 mmHg (20-29); CORD PCO2 45.3 mmHg (30-78); CORD pH 7.302 (7.14-7.44)
[2021-05-26] LABS: CORD HCO3 23.4 mmHg (20-29); CORD PCO2 60.7 mmHg (30-78); CORD pH 7.204 (7.14-7.44)
[2021-05-26] MEDS ORDERED: LIDOCAINE HCL/EPINEPHRINE/PF 10 ML VIAL ONE (00:11)
[2021-05-26] MEDS ORDERED: ceFAZolin SODIUM 1 GM VIAL ONE ×2 (00:17)
[2021-05-26] MEDS ORDERED: OXYTOCIN 10 UNITS/ML VIAL ONE ×4 (00:17)
[2021-05-26] MEDS ORDERED: ACETAMINOPHEN INJECTION 100 ML IVPB ONE (01:31)
[2021-05-26] MEDS ORDERED: OXYTOCIN 20 UNITS in 0.9% NS 20 UNIT/1,000 ML INFUS.BAG IV ONE (01:32)
[2021-05-26] MEDS ORDERED: OXYTOCIN 20 UNITS in 0.9% NS 1000 ML INFUS.BAG IV ONE (02:20)
[2021-05-26] MEDS: SIMETHICONE 80 MG TAB.CHEW (FP) PO PRN ×2 (11:45→20:38)
[2021-05-26] MEDS: oxyCODONE HCL 5 MG TABLET PO PRN ×2 (11:46→20:36)
[2021-05-26] MEDS: ACETAMINOPHEN 325 MG TABLET (FP) PO PRN (11:47)
[2021-05-26] MEDS: IBUPROFEN 600 MG TABLET (FP) PO PRN (23:59)
[2021-05-27] MEDS ORDERED: BISACODYL 10 MG SUPP.RECT RC PRN (01:19)
[2021-05-27] MEDS: FENTANYL/BUPIVACAINE/NS/PF - PCEA - 50 ML DISP.SYRIN EP SCH (08:01)
[2021-05-27] MEDS: SIMETHICONE 80 MG TAB.CHEW (FP) PO PRN ×4 (08:59→21:45)
[2021-05-27] MEDS: oxyCODONE HCL 5 MG TABLET PO PRN ×2 (08:59→14:06)
[2021-05-27 10:11] LABS: BASO % 0.3 % (0-2.0); EOS % 0.5 % (0-4.5); HEMATOCRIT 32.5 % (32.4-45.2); HEMOGLOBIN 11.1 GM/dL (10.7-15.3); LYMPH % 15.9 % (8-40); MCH 29.9 pg (25.7-33.7); MEAN PLT VOLUME 9.6 fl (7.5-11.1); NEUT % 75.3 % (42.8-82.8); PLATELET COUNT 118 10^3/uL (134-434); RDW 15.4 % (11.6-15.6); WHITE BLOOD COUNT 11.8 K/mm3 (4.0-10.0)
[2021-05-27] MEDS: IBUPROFEN 600 MG TABLET (FP) PO PRN (18:36)
[2021-05-27] MEDS: ACETAMINOPHEN 325 MG TABLET (FP) PO PRN (21:44)
[2021-05-28] MEDS: IBUPROFEN 600 MG TABLET (FP) PO PRN (06:31)
[2021-05-28] MEDS: ACETAMINOPHEN 325 MG TABLET (FP) PO PRN (10:24)
[2021-05-28] MEDS: SIMETHICONE 80 MG TAB.CHEW (FP) PO PRN (10:24)
[2021-05-28 12:37] VITALS: BP 122/79; PULSE 87; TEMP 98.1
== END 2021-05-28 12:00 | disposition home or self-care (01) | DRG 787 ==
LOC: JDEL 02:40 → JLDR 03:20 → J3W 05-26 02:06
PROVIDERS: ADMIT Obstetrics & Gynecology Maternal & Fetal Medicine; ATTEND Obstetrics & Gynecology Maternal & Fetal Medicine
PROC: 10D00Z1 Extraction of Products of Conception, Low, Open Approach (ICD-10-PCS; principal; 2021-05-25)
DX: O77.9 Labor and delivery complicated by fetal stress, unspecified (principal); O99.12 Other diseases of the blood and blood-forming organs and certain disorders involving the immune mechanism complicating childbirth; D69.6 Thrombocytopenia, unspecified; O69.89X0 Labor and delivery complicated by other cord complications, not applicable or unspecified; O43.123 Velamentous insertion of umbilical cord, third trimester; Z3A.39 39 weeks gestation of pregnancy; Z37.0 Single live birth
CPT/HCPCS: 36415; 36600; 80048; 82803; 85025; 85610; 85730; 86780; 86850; 86900; 86901; 87389; C9803; J0131; U0003; U0005

== ENCOUNTER 2023-09-07 00:20 | Emergency (ER) | payer BC ==
[2023-09-07 00:28] VITALS: RESP 18; BMI 30.5
[2023-09-07 00:45] VITALS: BP 124/73; PULSE 80; TEMP 99.7
[2023-09-07] MEDS ORDERED: FLUORESCEIN NA 1 EA STRIP ONE (00:53)
== END 2023-09-07 01:09 | disposition home or self-care (01) ==
LOC: FER 00:20
DX: O9A.212 Injury, poisoning and certain other consequences of external causes complicating pregnancy, second trimester (principal); S05.01XA Injury of conjunctiva and corneal abrasion without foreign body, right eye, initial encounter; H57.11 Ocular pain, right eye; O26.892 Other specified pregnancy related conditions, second trimester; H53.8 Other visual disturbances; X58.XXXA Exposure to other specified factors, initial encounter; Z3A.14 14 weeks gestation of pregnancy
CPT/HCPCS: 99283-25

== ENCOUNTER 2024-02-27 10:00 | Inpatient (IN) | payer BC ==
[2024-02-27] MEDS: DEXTROSE 5%-LACTATED RINGERS 1,000 ML IV SCH (11:30)
[2024-02-27 12:03] VITALS: BMI 38.4
[2024-02-27] MEDS: CITRIC ACID/SODIUM CITRATE 30 ML UNIT-DOSE CUP PO ONE (12:05)
[2024-02-27] MEDS ORDERED: OXYTOCIN 30 UNITS in 0.9% NS 30 UNIT/500 ML INFUS.BAG IVPB ONE (12:34)
[2024-02-27] MEDS ORDERED: ONDANSETRON 4 MG/2 ML VIAL ONE (12:36)
[2024-02-27] MEDS ORDERED: ceFAZolin SODIUM 1 GM VIAL ONE (12:36)
[2024-02-27] MEDS ORDERED: FENTANYL CITRATE/PF 50 MCG/ML VIAL ONE (12:36)
[2024-02-27] MEDS ORDERED: morphine SULFATE/PF 1 MG/2 ML (2cc Syringe - QUVA) ONE (12:36)
[2024-02-27] MEDS ORDERED: METOCLOPRAMIDE HCL INJECTION 10 MG/2 ML VIAL ONE (12:36)
[2024-02-27] MEDS ORDERED: DEXAMETHASONE SOD PHOSPHATE 4 MG/1 ML VIAL ONE (12:36)
[2024-02-27] MEDS ORDERED: PHENYLEPHRINE HCL 10 MG/1 ML SINGLE DOSE VIAL ONE (12:36)
[2024-02-27] MEDS ORDERED: KETOROLAC TROMETHAMINE 30 MG/1 ML VIAL ONE (14:17)
[2024-02-27 14:28] LABS: CORD HCO3 27.2 mmHg (20-29); CORD PCO2 62.8 mmHg (30-78); CORD pH 7.254 (7.14-7.44)
[2024-02-27 14:34] LABS: CORD HCO3 26.6 mmHg (20-29); CORD PCO2 73.5 mmHg (30-78); CORD pH 7.176 (7.14-7.44)
[2024-02-27] MEDS: OXYTOCIN 20 UNITS in 0.9% NS 20 UNIT/1,000 ML INFUS.BAG IV SCH (15:10)
[2024-02-27] MEDS ORDERED: OXYTOCIN 20 UNITS in 0.9% NS 20 UNIT/1,000 ML INFUS.BAG IV ONE (15:12)
[2024-02-27] MEDS ORDERED: ACETAMINOPHEN 325 MG TABLET (FP) PO PRN (15:22)
[2024-02-27] MEDS: morphine SULFATE/PF 1 MG/2 ML (2cc Syringe - QUVA) IT ONE (16:16)
[2024-02-27] MEDS: ONDANSETRON 4 MG/2 ML VIAL IVPUSH PRN (19:04)
[2024-02-28] MEDS: IBUPROFEN 600 MG TABLET (FP) PO PRN (06:52)
[2024-02-28 07:33] LABS: BASO % 0.3 % (0-2.0); EOS % 0.4 % (0-4.5); HEMATOCRIT 30.9 % (32.4-45.2); HEMOGLOBIN 10.3 GM/dL (10.7-15.3); LYMPH % 10.6 % (8-40); MCH 29.4 pg (25.7-33.7); MCHC 33.3 g/dl (32.0-36.0); MEAN CELL VOLUME 88.3 fl (80-96); MEAN PLT VOLUME 9.6 fl (7.5-11.1); MONO % 7.7 % (3.8-10.2); PLATELET COUNT 117 10^3/uL (134-434); RDW 15.2 % (11.6-15.6); WHITE BLOOD COUNT 11.6 K/mm3 (4.0-10.0)
[2024-02-28] MEDS: oxyCODONE HCL 5 MG TABLET PO PRN (13:09)
[2024-02-29] MEDS: DOCUSATE SODIUM 100 MG CAPSULE (FP) PO SCH (22:05)
[2024-02-29] MEDS: oxyCODONE HCL 5 MG TABLET PO PRN (22:05)
[2024-03-01 07:42] LABS: BASO % 0.3 % (0-2.0); EOS % 3.8 % (0-4.5); HEMATOCRIT 28.8 % (32.4-45.2); HEMOGLOBIN 9.7 GM/dL (10.7-15.3); LYMPH % 24.5 % (8-40); MCH 29.8 pg (25.7-33.7); MCHC 33.6 g/dl (32.0-36.0); MEAN CELL VOLUME 88.8 fl (80-96); MEAN PLT VOLUME 9.2 fl (7.5-11.1); MONO % 9.3 % (3.8-10.2); NEUT % 62.1 % (42.8-82.8); PLATELET COUNT 135 10^3/uL (134-434); RBC 3.24 M/mm3 (3.60-5.2); RDW 15.3 % (11.6-15.6); WHITE BLOOD COUNT 7.4 K/mm3 (4.0-10.0)
[2024-03-01 10:46] VITALS: BP 122/73; PULSE 86; RESP 18; TEMP 97.9
== END 2024-03-01 12:00 | disposition home or self-care (01) | DRG 788 ==
LOC: JLDR 10:00 → J3W 17:30
PROVIDERS: ADMIT Obstetrics & Gynecology Maternal & Fetal Medicine; ATTEND Obstetrics & Gynecology Maternal & Fetal Medicine
PROC: 10D00Z1 Extraction of Products of Conception, Low, Open Approach (ICD-10-PCS; principal; 2024-02-27)
DX: O34.211 Maternal care for low transverse scar from previous cesarean delivery (principal); Z3A.39 39 weeks gestation of pregnancy; Z37.0 Single live birth
CPT/HCPCS: 36415; 36600; 82803; 85025; 88307-TC